=== PATIENT | female | born 1960 | race Caucasian/White ===

== ENCOUNTER 2021-04-02 13:52 | Outpatient (REF) | payer OTHER, SELFPAY ==
--- NOTE | ~2021-04-02 | US_ITS ---
EXAMINATION: US RETROPERITONEAL LIMITED (RENAL ONLY) CLINICAL INFORMATION: Calculus of kidney. COMPARISON: Renal ultrasounds, most recent 11/17/2019 TECHNIQUE: Real-time imaging of the kidneys. FINDINGS: RIGHT KIDNEY: 11.5 x 4.9 x 6.0 cm (SAG x AP x TRV). The kidney is normal in size, contour, and echogenicity. Renal cortical thickness is normal. No calculi or focal parenchymal lesions. No hydronephrosis. LEFT KIDNEY: 11.4 x 6.6 x 5.9 cm (SAG x AP x TRV). The kidney is normal in size, contour, and echogenicity. Renal cortical thickness is normal. No calculi or focal parenchymal lesions. No hydronephrosis. Liver is echogenic. US/US renal BI IMPRESSION: Normal renal ultrasound. No stone seen..
== END 2021-04-02 13:53 | disposition home or self-care (01) ==
LOC: HO.US 13:52
PROVIDERS: PCP Internal Medicine; Visit Provider Urology
DX: N20.0 Calculus of kidney (principal)
CPT/HCPCS: 76775

== ENCOUNTER 2021-04-24 14:29 | Outpatient (REF) | payer OTHER, SELFPAY | END 2021-04-24 14:30 | disposition home or self-care (01) | LOC: HO.LNP 14:29 | PROVIDERS: PCP Internal Medicine | DX: N20.0 Calculus of kidney (principal); E11.9 Type 2 diabetes mellitus without complications; H54.8 Legal blindness, as defined in USA; Z87.891 Personal history of nicotine dependence; Z87.440 Personal history of urinary (tract) infections | CPT/HCPCS: 87086; 87088; 87186 ==

== ENCOUNTER 2022-04-04 13:02 | Outpatient (REF) | payer OTHER, SELFPAY ==
--- NOTE | ~2022-04-04 | US_ITS ---
EXAMINATION: US RETROPERITONEAL LIMITED (RENAL ONLY) CLINICAL INFORMATION: Calculus of kidney. COMPARISON: Renal ultrasound 04/02/2021 and 11/17/2019. X-ray KUB 09/16/2018 and 09/17/2017. CT abdomen and pelvis 05/26/2018. TECHNIQUE: Real-time imaging of the kidneys. FINDINGS: RIGHT KIDNEY: 10.8 x 4.1 x 5.9 cm (SAG x AP x TRV). The kidney is normal in size, contour, and echogenicity. Renal cortical thickness is normal. No calculi or focal parenchymal lesions. No hydronephrosis. LEFT KIDNEY: 10.6 x 6.2 x 6.1 cm (SAG x AP x TRV). The kidney is normal in size, contour, and echogenicity. Renal cortical thickness is normal. No calculi or focal parenchymal lesions. No hydronephrosis. US/US renal BI IMPRESSION: Normal renal ultrasound. No stone seen.
== END 2022-04-04 13:03 | disposition home or self-care (01) ==
LOC: HO.US 13:02
DX: N20.0 Calculus of kidney (principal)
CPT/HCPCS: 76775

== ENCOUNTER → 2022-04-23 13:40 | Outpatient (BNVA) | payer OTHER, SELFPAY | PROVIDERS: PCP Internal Medicine; Visit Provider Nurse Practitioner Family | DX: N20.0 Calculus of kidney (principal); Z87.440 Personal history of urinary (tract) infections | CPT/HCPCS: 99212 ==

== ENCOUNTER → 2022-07-23 11:33 | Outpatient (BNVA) | payer OTHER, SELFPAY | PROVIDERS: PCP Internal Medicine; Visit Provider Nurse Practitioner Family | DX: N20.0 Calculus of kidney (principal) | CPT/HCPCS: 99212 ==

== ENCOUNTER 2022-08-07 06:55 | Day surgery (SDC) | payer OTHER, SELFPAY ==
[2022-08-01 13:51] VITALS: BMI 31.7
--- NOTE | ~2022-08-07 | XR_ITS ---
EXAMINATION: XR ABDOMEN KUB CLINICAL INDICATION: Right renal stone COMPARISON: KUB 09/16/2018. Ultrasound 04/04/2022 TECHNIQUE: 2 AP view of the abdomen. FINDINGS: There are 2 small calcific densities measuring 2 mm respectively , projected over the right renal fossa. This could be related to bowel contents versus renal calculi. Bowel gas and stool projected over the renal fossa limiting evaluation. No additional definite renal calculi seen. Multiple calcifications in the pelvis, probably phleboliths. Distal ureteral stones cannot be entirely excluded. Nonobstructive bowel gas pattern. Surgical sutures project over the right abdomen. Thoracic spine degeneration. Lung bases are clear. XR/XR KUB IMPRESSION: 2 small densities project of the right renal fossa could reflect bowel contents versus small renal calculi..
[2022-08-07 08:03] VITALS: BP 147/92; PULSE 92; RESP 18; TEMP 36.3; O2SAT 97
[2022-08-07 08:10] LABS: Glucose, Whole Blood 129 mg/dL (60-115)
[2022-08-07] MEDS: Lactated Ringers 1,000 ML 50 ML IVCONT (08:34)
--- NOTE | 2022-08-07 09:05 | P.CONAN_ITS ---
[facility] Active Problems Active Problems: All Active Problems (Updated 08/01/22 @ 13:24 by Dominique Hernandez, RN) Hx of urinary tract infection (Acute) Calculus of kidney (Acute) Past Medical History Medical History (Updated 08/01/22 @ 13:24 by Dominique Heranndez, RN) Arthritis Asthma Back pain Calculus of kidney Depression Diabetes mellitus, type II Fatty liver Fibromyalgia HTN (hypertension) Hx of urinary tract infection Hyperlipidemia Legally blind Obesity On beta antelmo at home ANANT (obstructive sleep apnea) Renal stones Retained ureteral stent UTI (urinary tract infection) Vertigo Family History Family history of problems with anesthesia: No Surgical History Surgical History (Updated 08/01/22 @ 13:11 by Dominique Hernandez, SAMI) History of cystoscopy History of enucleation of left eyeball History of esophagogastroduodenoscopy (EGD) History of lithotripsy History of sleeve gastrectomy Hx of cholecystectomy Hx of colonoscopy Hx of hysterectomy History of Problems with Anesthesia: No Social History Social History Household Members Other:: SON Housing Other:: Mobile Home Are you a primary family member caretaker to a significant other at home: No Do you presently have visiting nurse or other home services: No Patient Tobacco Use Status: Former Tobacco user Quit Date: 2018 Tobacco use type: Cigarette Use of substances other than those prescribed or required for medical reasons: No Have you been hit, kicked, punched, or otherwise hurt by someone within the past year? If so, by whom?: No Are you DNR?: No Advance Directives: No Advance Directives Information Provided: Yes Advance Directives on File: No Recently lost weight without trying: No Eating poorly because of decreased appetite: No Nutrition Risks: No Nutritional Risk Meds Allergies Allergy/AdvReac Type Severity Reaction Status Date / Time nifedipine AdvReac Headache Verified 08/01/22 13:17 Active Medications: Current Medications Lactated Ringer's (Lr) 1,000 mls @ 50 mls/hr IVCONT .Q20H [facility] Last Admin: 08/07/22 08:34 Dose: 50 mls/hr Lactated Ringer's (Lr) 1,000 mls @ 999 mls/hr IV .Q1H1M [facility] Stop: 08/07/22 09:15 Home Medications Medication Instructions Recorded Confirmed Last Taken Type acetaminophen 500 mg tablet (Pain 1,000 mg PO TID PRN Pain 04/24/21 08/01/22 08/07/22 07:00 History Relief Extra Strength (acetaminophen)) amitriptyline 25 mg tablet 25 mg PO BEDTIME 04/24/21 08/01/22 Unknown History amlodipine 10 mg tablet 10 mg PO DAILY 04/24/21 08/01/22 08/07/22 07:00 History brimonidine 0.2 % eye drops 1 drp ophthalmic-Right TID 04/24/21 08/01/22 Unknown History calcium carbonate 600 mg-vitamin 1 tab PO BID 04/24/21 07/23/22 Unknown History D3 5 mcg (200 unit) tablet (Calcium 600 + D(3)) docusate sodium 100 mg capsule 100 mg PO BID PRN constipation 04/24/21 08/01/22 Unknown History dorzolamide 22.3 mg-timolol 6.8 1 drp ophthalmic-Right TID 04/24/21 08/01/22 Unknown History mg/mL eye drops dulaglutide 1.5 mg/0.5 mL mg subcut QWEEK 04/24/21 07/23/22 Unknown History subcutaneous pen injector (Trulicity) duloxetine 60 mg capsule,delayed 120 mg PO DAILY 04/24/21 08/01/22 Unknown History release glipizide 5 mg tablet 5 mg PO DAILY 04/24/21 08/01/22 Unknown History latanoprost 0.005 % eye drops 1 drp ophthalmic-Right BEDTIME 04/24/21 08/01/22 Unknown History metformin 500 mg tablet,extended 500 mg PO DAILY 04/24/21 08/01/22 Unknown History release 24 hr methenamine hippurate 1 gram tablet 1 g PO BID 04/24/21 08/01/22 Unknown History omeprazole 40 mg capsule,delayed 40 mg PO BID 04/24/21 08/01/22 Unknown History release pilocarpine HCl 2 % eye drops 1 drp ophthalmic-Right TID 04/24/21 08/01/22 Unknown History potassium citrate 15 mEq (1,620 15 meq PO BID 04/24/21 08/01/22 Unknown History mg) tablet,extended release trazodone 100 mg tablet 200 mg PO BEDTIME 04/24/21 08/01/22 Unknown History lisinopril 40 mg tablet 40 mg PO DAILY 04/23/22 08/01/22 Unknown History pregabalin 150 mg capsule 150 mg PO BID 04/23/22 08/01/22 Unknown History rosuvastatin 10 mg tablet 10 mg PO DAILY 04/23/22 08/01/22 Unknown History dapagliflozin 10 mg tablet 10 mg PO DAILY 07/23/22 08/01/22 Unknown History (Farxima) tizanidine 2 mg tablet 2 mg PO TID PRN pain 07/23/22 08/01/22 Unknown History budesonide-formoterol HFA 80 2 puff inhalation BID 08/01/22 08/01/22 Unknown History mcg-4.5 mcg/actuation aerosol inhaler (Symbicort) metoprolol tartrate 100 mg tablet 100 mg PO BID 08/01/22 08/01/22 Unknown History Exam Exam Date and Time: August 07, 2022 0905 Height,Weight and Vital Signs: Height 5 ft 9 in Weight 97.522 kg Last Vital Signs Temp 97.4 F 08/07/22 08:03 Pulse 92 08/07/22 08:03 Resp 18 08/07/22 08:03 BP 147/92 H 08/07/22 08:03 Pulse Ox 97 08/07/22 08:03 O2 Del Method Room Air 08/07/22 08:03 Pertinent Lab Results Pertinent Lab Results: Laboratory Tests 08/07/22 08:06 POC Glucose 129 H Airway Mallampati Class: II TM Dist: >3cm Heart: rrr Lungs: cta Assessment and Plan Assessment Anesthesia Assessment: Anesthesia Plan Discussed and Chart Reviewed Final Anesthetic Review Family History of Problems with Anesthesia: No History of Problems with Anesthesia: No NPO: Yes ASA Class: III Final Preanesthetic Review: No Changes in Pt Med Stat, Meds/Allgs Chart Reviewed, Consent Obtained/Reviewed and Anes Risks/Benef Reviewed Patient Risk: Low Procedure Risk: Low Anesthetic Plan Anesthetic Plan: GA Disposition: Standard PACU
--- NOTE | 2022-08-07 09:06 | MHC.SHP ---
Pre-Procedural Eval Section A Date of Service: 08/07/22 The patient is an INPATIENT: No Changes since office visit: No Cold of Flu in the past 2 weeks, No New Medical Problems, No Changes in Medication and No Patient answered all questions The History & Physical has been completed within 30 days and I have reviewed it.: Yes Section B Chief Complaint: Calculus of kidney Allergies: Allergies Allergy/AdvReac Type Severity Reaction Status Date / Time nifedipine AdvReac Headache Verified 08/01/22 13:17 Review of Systems Sugical H&P ROS: Negative: Constitution, Cardiovascular, Respiratory, Neurological, Psychiatric, Hem-Onc, Allergic/Immunologic, Gastrointestinal, Genitourinary, Musculoskeletal, Integumentary, Endocrine and Eyes/Ears/Nose/Throat Exam Surgical H&P Exam: Normal: HEENT, Normal: Heart, Normal: Lungs, Normal: Extremities, Normal: Abdomen, Normal: Skin and Normal: Neurological Plan Diagnosis/Plan: Unchanged (right ESWL) I have reviewed the history and physical and performed a pertinent physical examination on my patient. No changes have occurred unless specified. Time Spent With Patient Time: Total time managing care of this patient today ____ minutes.
--- NOTE | 2022-08-07 09:26 | PC.NURSE ---
pt took 1000mg po of tylenol iv tylenol return pharmacy will [facility] picker
--- NOTE | 2022-08-07 09:57 | W.PM.OPN ---
Operative Note Operative Note Date of Service: 08/07/22 Narrative: PreOperative Diagnosis: right Renal stones Post Operative Diagnosis: right Renal stones Procedure: right ESWL Surgeon: Dr Alex Peralta Anesthesia: mac/sedation Indications for procedure: The patient understands ESWL may be a staged procedure and subsequent intervention may be required based on imaging after ESWL. Quoted stone clearance rates for a solitary procedure are in the 70-80% range based primarily on stone location. They also understand there is a risk of bleeding to the kidney, infection, damage to adjacent organs, and stone migration following the procedure. - Imaging right stones on KUB Procedure: After informed consent was verified the patient was brought to the operating room and placed in a supine position. Anesthesia was performed per protocol. Safety pause time-out was performed. Imaging was displayed in the room and laterality confirmed. ESWL was performed. The 1st 500 shocks were performed at 60 hertz. These were performed with increasing power. Once maximum power was reached the rate was increased to 180 hertz. A total of 2500 shocks were given. Targeted imaging with ultrasound/fluoroscopy showed stone smudging suggestive of disintegration. The patient tolerated the procedure well and was transferred to the recovery area upon completion. Post procedure imaging will be organized. There was no evidence for flank discoloration.
[2022-08-07 10:05] VITALS: BP 114/73; PULSE 75; RESP 17; TEMP 36.9; O2SAT 98
[2022-08-07 10:10] VITALS: BP 123/79; PULSE 74; RESP 16; O2SAT 96
[2022-08-07 10:15] VITALS: BP 120/83; PULSE 74; RESP 17; O2SAT 96
[2022-08-07 10:20] VITALS: BP 122/80; PULSE 76; RESP 18; O2SAT 96
[2022-08-07 10:35] VITALS: BP 119/87; PULSE 77; RESP 18; TEMP 36.9; O2SAT 97
== END 2022-08-07 10:56 | disposition home or self-care (01) ==
PROVIDERS: PCP Internal Medicine; Visit Provider Urology
PROC: (CPT 50590; principal; 2022-08-07 08:50)
DX: N20.0 Calculus of kidney (principal); Z87.442 Personal history of urinary calculi; Z87.440 Personal history of urinary (tract) infections; Z96.0 Presence of urogenital implants; J45.909 Unspecified asthma, uncomplicated; K76.0 Fatty (change of) liver, not elsewhere classified; H54.8 Legal blindness, as defined in USA; E11.9 Type 2 diabetes mellitus without complications; Z79.85 Long-term (current) use of injectable non-insulin antidiabetic drugs; Z79.51 Long term (current) use of inhaled steroids; Z79.899 Other long term (current) drug therapy; Z88.8 Allergy status to other drugs, medicaments and biological substances; Z87.891 Personal history of nicotine dependence
CPT/HCPCS: 50590; 74018; 82947; J0131; J1100; J2405; J3010

== ENCOUNTER 2022-08-16 13:02 | Outpatient (REF) | payer OTHER, SELFPAY ==
--- NOTE | ~2022-08-16 | US_ITS ---
EXAMINATION: US RETROPERITONEAL LIMITED (RENAL ONLY) CLINICAL INFORMATION: Calculus of kidney. COMPARISON: Renal ultrasound 04/04/2022 and 04/02/2021. CT abdomen and pelvis 05/26/2018. TECHNIQUE: Real-time imaging of the kidneys. FINDINGS: RIGHT KIDNEY: 11.3 x 4.5 x 6.7 cm (SAG x AP x TRV). The kidney is normal in size, contour, and echogenicity. Renal cortical thickness is normal. No focal parenchymal lesions or hydronephrosis. Nonobstructing stones measuring 1 cm in the lower pole, previously [address] not seen on prior ultrasound and 2 mm in the upper pole new from prior. LEFT KIDNEY: 10.7 x 5.4 x 6.6 cm (SAG x AP x TRV). The kidney is normal in size, contour, and echogenicity. Renal cortical thickness is normal. No calculi or focal parenchymal lesions. No hydronephrosis. Partially imaged liver appears echogenic. US/US renal BI IMPRESSION: Nonobstructing right renal stones measuring up to 1 cm in the lower pole and 2 mm in the upper pole, as detailed above. Increased hepatic echogenicity which can be seen in the setting of hepatic steatosis or underlying liver disease.
== END 2022-08-16 13:03 | disposition home or self-care (01) ==
LOC: HO.HMGCX 13:02
PROVIDERS: PCP Internal Medicine; Visit Provider Nurse Practitioner Family
DX: N20.0 Calculus of kidney (principal); Z87.440 Personal history of urinary (tract) infections
CPT/HCPCS: 76775

== ENCOUNTER 2022-12-03 14:12 | Outpatient (REF) | payer OTHER, SELFPAY ==
[2022-12-03 20:11] LABS: Appearance Urine Cloudy; Color Urine Yellow; Glucose Urine UA 250 mg/dL (Negative); Leukocyte Esterase Urine Moderate (2+) (Negative); Nitrite Urine Positive (Negative); PH 5.5 (5.0-9.0); UMIC TRIGGER UA YES; Urine Blood Negative (Negative); Urine Ketones Negative (Negative); Urine Protein Trace mg/dL (Neg-Trace)
[2022-12-03 20:17] LABS: Bacteria Urine 4+ (None Seen); Hyaline Casts Urine 0-2 /LPF (0-2); RBC Urine 0-2 /HPF (0-2); Squamous Epithelial Cell Urine 0-2 /HPF (0-2); WBC Urine >50 /HPF (0-5)
== END 2022-12-03 14:13 | disposition home or self-care (01) ==
LOC: HO.LAB 14:12
PROVIDERS: Visit Provider Urology
DX: R31.29 Other microscopic hematuria (principal); N39.0 Urinary tract infection, site not specified; R33.9 Retention of urine, unspecified; Z87.440 Personal history of urinary (tract) infections
CPT/HCPCS: 81001; 87086; 87088; 87186; 99212

== ENCOUNTER 2022-12-03 14:12 | Outpatient (AMB) | payer OTHER, SELFPAY ==
--- NOTE | 2022-12-03 14:19 | A.OFFVIS_ITS ---
Intake Intake Visit Reasons: follow up Intake Note: Patient is present for Follow Up Urology Med: Methenamine, Tamsulosin, Antibiotic Allergy: None Blood Thinner: None Pharmacy: [facility] Allergies nifedipine Adverse Reaction (Verified 12/03/22 14:22) Headache HPI HPI Comments History of Present Illness Details Alicia is a pleasant Thai-speaking female. She is a patient of Dr. Mayfield. She seen for the following urologic conditions - nephrolithiasis Background of glucosuria with Trulicity for diabetes Stone follow-up - indeterminate imaging Urinary tract infection today following back surgery in late August Decreased force of stream Manage urinary tract infection and alpha-antelmo to improve bladder emptying Nephrolithiasis Prior presentation to emergency room [facility] - 07/25 CT scan 6 mm right renal stone with fatty liver - 04/25 renal ultrasound evidence of stones Intervention - 08/25 right ESWL PFS Medical History Arthritis Asthma Back pain Calculus of kidney Depression Diabetes mellitus, type II Fatty liver Fibromyalgia HTN (hypertension) Hx of urinary tract infection Hyperlipidemia Legally blind Obesity On beta antelmo at home ANANT (obstructive sleep apnea) Renal stones Retained ureteral stent UTI (urinary tract infection) Vertigo Surgical History History of cystoscopy History of enucleation of left eyeball History of esophagogastroduodenoscopy (EGD) History of lithotripsy History of sleeve gastrectomy Hx of cholecystectomy Hx of colonoscopy Hx of hysterectomy Social History Household Members Other:: SON Housing Other:: Mobile Home Are you a primary critical care specialist to a significant other at home: No Do you presently have visiting nurse or other home services: No Patient Tobacco Use Status: Former Tobacco user Quit Date: 2018 Tobacco use type: Cigarette Review of Systems Const Denies chills and Denies fever(s) Card Reports no additional complaints and Denies syncope Resp Denies cough GI Denies abdominal pain and Denies heartburn Reports as per HPI and Denies change in libido Neuro Denies syncope Psych Denies change in libido Endo Denies change in libido Physical Exam Const General: cooperative, healthy appearing, comfortable and no acute distress Orientation/consciousness: patient oriented x3 HEENT Face and sinus: Yes normal facial exam Mouth: moist mucous membranes Neck Neck: Yes normal visual inspection, Yes full ROM and Yes trachea midline Chest Chest palpation & inspection: normal inspection of the chest Resp Effort & Inspection: normal respiratory effort, able to speak in complete sentences and no respiratory distress GI Inspection: Yes normal to inspection Back/Spine/Pelvis Cervical Spine: normal cervical lordosis Thoracic/Lumbar Spine: thoracic and lumbar spine normal to inspection Skin General skin exam: no rashes or lesions noted Neuro General: patient oriented x3, gait normal, tone normal and moves all extremities Extrem General: Yes normal to inspection and Yes capillary refill normal Results AMB Urinalysis, Automated UA Leukoctes 70 Mahsa/uL Last Edit by Leial Gallardo [facility] on 12/03/22 14:34 UA Nitrite Positive Last Edit by Leila Gallardo [facility] on 12/03/22 14:34 UA Urobilinogen 0.2 mg/dL Last Edit by Leila Gallardo [facility] on 12/03/22 14:3 4 UA Protein 15 mg/dL Last Edit by Leila Gallardo [facility] on 12/03/22 14:34 UA pH 6.0 Last Edit by Leila Gallardo [facility] on 12/03/22 14:34 UA Blood 0 Chadwick/uL Last Edit by Leila Gallardo [facility] on 12/03/22 14:34 UA Specific [place] 1.020 Last Edit by Leila Gallardo [facility] on 12/03/22 14: 34 UA Ketone Negative Last Edit by Leila Gallardo [facility] on 12/03/22 14:34 UA Bilirubin 0 mg/dL Last Edit by Leila Gallardo [facility] on 12/03/22 14:34 UA Glucose 5 mg/dL Last Edit by Leila Gallardo [facility] on 12/03/22 14:34 Assessment & Plan Assessment & Plan (1) Complicated urinary tract infection: Code(s): N39.0 - Urinary tract infection, site not specified (2) Urinary retention with incomplete bladder emptying: Code(s): R33.9 - Retention of urine, unspecified Plan - Treat UTI - add alpha-antelmo for bladder emptying - 3 month follow-up Orders: Orders Urine Culture Today Z87.440 - Personal history of urinary (tract) infections UA w Microscopic Today R31.29 - Other microscopic hematuria, Z87.440 - Personal history of urinary (tract) infections AMB Urinalysis Automated Today Z13.9 - Encounter for screening, unspecified Medications: New sulfamethoxazole-trimethoprim 800-160 mg (Bactrim DS) 1 tab PO bid 5 days 10 tabs 0RF N39.0 - Urinary tract infection, site not specified tamsulosin 0.4 mg PO BEDTIME 30 caps 2RF 30 days R33.9 - Retention of urine, unspecified Patient Instructions: Imaging studies, laboratory and physical exam results were discussed and reviewed in detail. No major barriers to patient understanding were identified. An opportunity to ask questions regarding the treatment plan was provided. All questions were answered. The patient expressed understanding and agreement with the above treatment plan. The patient is aware they should contact our office by phone for worsening of their current condition or the appearance of new urologic symptoms. Compliance is encouraged with any medications and followup testing that is ordered. It is a privilege to participate in the urologic care of your patient. If you have any questions or concerns regarding treatment for the above conditions, or other urologic issues, please do not hesitate to contact me. The office telep placido contact is [phone]. This note is constructed using voice recognition software. While every effort has been made to ensure accuracy computer network specialist errors may have been included. Yours sincerely, Dr Alex Peralta MD, [facility] - Urology Providers of Expert, Compassionate Care for the Genitourinary System Coding Level of Care Code Est Pt Level 4 (21324) Diagnoses Complicated urinary tract infection N39.0 Urinary retention with incomplete bladder emptying R33.9
== END 2022-12-03 14:44 | disposition home or self-care (01) ==
PROVIDERS: Visit Provider Urology
DX: N39.0 Urinary tract infection, site not specified (principal); R33.9 Retention of urine, unspecified
CPT/HCPCS: 99214

== ENCOUNTER 2023-03-06 15:21 | Outpatient (REF) | payer OTHER, SELFPAY ==
--- NOTE | ~2023-03-06 | US_ITS ---
EXAMINATION: US RETROPERITONEAL LIMITED (RENAL ONLY) CLINICAL INFORMATION: Calculus of kidney. COMPARISON: Ultrasound retroperitoneal limited 08/16/2022 and 04/04/2022. X-ray abdomen KUB 08/07/2022 and 09/16/2018. CT abdomen and pelvis without contrast 05/26/2018. TECHNIQUE: Real-time imaging of the kidneys. FINDINGS: RIGHT KIDNEY: 10.8 x 4.3 x 4.9 cm (SAG x AP x TRV). The kidney is normal in size, contour, and echogenicity. Renal cortical thickness is normal. No calculi or focal parenchymal lesions. No hydronephrosis. LEFT KIDNEY: 10.7 x 5.5 x 6.1 cm (SAG x AP x TRV). The kidney is normal in size, contour, and echogenicity. Renal cortical thickness is normal. No calculi or focal parenchymal lesions. No hydronephrosis. US/US renal BI IMPRESSION: No nephrolithiasis or hydronephrosis.
== END 2023-03-06 15:22 | disposition home or self-care (01) ==
LOC: HO.US 15:21
PROVIDERS: PCP Internal Medicine; Visit Provider Nurse Practitioner Family
DX: N20.0 Calculus of kidney (principal)
CPT/HCPCS: 76775

== ENCOUNTER 2023-03-25 13:39 | Outpatient (AMB) | payer OTHER, SELFPAY ==
--- NOTE | 2023-03-25 13:42 | A.OFFVIS_ITS ---
Intake Intake Visit Reasons: 1yr follow up/US(set) Intake Note: Patient is present for follow up ultrasound (imaging 03/06/23) Urology Medications: Methenamine, Tamsulosin, Blood Thinner: None Resident Service Coordinator Required: No Accompanied by: Self / Same As Patient Allergies nifedipine Adverse Reaction (Verified 03/25/23 14:23) Headache Medication List - Last Reconciled 03/25/23 by FER Brand-BC acetaminophen (Pain Relief Extra Strength (acetaminophen)) 1,000 mg PO TID PRN amitriptyline 25 mg PO BEDTIME amlodipine 10 mg PO DAILY brimonidine 0.2% 1 drp ophthalmic-Right TID budesonide-formoterol 80-4.5 mcg/actuation (Symbicort) 2 puffs inhalation BID calcium carbonate-vitamin D3 600 mg-5 mcg (200 unit) (Calcium 600 + D(3)) 1 tab PO BID cholecalciferol (vitamin D3) 25 mcg PO DAILY dapagliflozin propanediol (Farxiga) 10 mg PO DAILY docusate sodium 100 mg PO BID PRN dorzolamide-timolol 22.3-6.8 mg/mL 1 drp ophthalmic-Right TID dulaglutide (Trulicity) mg subcut QWEEK duloxetine 120 mg PO DAILY glipizide 5 mg PO DAILY latanoprost 0.005% 1 drp ophthalmic-Right BEDTIME lisinopril 40 mg PO DAILY metformin ER 500 mg PO DAILY methenamine hippurate 1 g PO BID metoprolol tartrate 100 mg PO BID naproxen 500 mg PO BID PRN 7 days nitrofurantoin monohyd/m-cryst 100 mg (Macrobid) 100 mg PO BID 7 days omeprazole 40 mg PO BID pilocarpine HCl 2% 1 drp ophthalmic-Right TID potassium citrate ER 15 mEq PO BID pregabalin 150 mg PO BID rosuvastatin 10 mg PO DAILY tamsulosin 0.4 mg PO BEDTIME 14 days tamsulosin 0.4 mg PO BEDTIME 90 days tizanidine 2 mg PO TID PRN tramadol 50 mg PO Q6H PRN trazodone 200 mg PO BEDTIME HPI HPI Comments History of Present Illness Details Alicia is a 63-year-old Latvian-speaking female who is accompanied by her son at today visit.?She is a patient of Dr. Mayfield. She has a past medical history of fatty liver, fibromyalgia, obesity, obstructive sleep apnea, vertigo, depression, hyperlipidemia, hypertension, asthma, arthritis, legally blind, type 2 diabetes, nephrolithiasis, and urinary tract infections. She presents to the office today for follow-up of her nephrolithiasis and urinary tract infections. Discussion with the patient today she reports to be doing and feeling well. Recent renal imaging results reviewed with the patient and her son today. Bilateral kidneys with no calculi, lesions, and or hydronephrosis noted. Patient denies having had any urinary tract infections and or UTI like symptoms since her last office visit here. She is currently reporting intermittent right-sided flank however denies any other urinary issues or concerns. No CVA tenderness noted on exam today. She denies urinary urgency, urinary frequency, incontinence, nocturia, hematuria, dysuria, foul smelling urine, changes to urinary stream,fever, and or chills. In office urinalysis with glycosuria however patient on Trulicity for her Diabetes. PVR 0 mL. Discussed further workup with CT KUB for further assessment evaluation of patient's right-sided flank pain. However patient reports pain is intermittent, dull, and infrequent. She otherwise offers no other issues or concerns at this time [facility] Medical History (Reviewed 03/25/23 @ 14:26 by [facility]) Fatty liver On beta antelmo at home Fibromyalgia Obesity ANANT (obstructive sleep apnea) Back pain UTI (urinary tract infection) Vertigo Depression Hyperlipidemia HTN (hypertension) Asthma Arthritis Legally blind Diabetes mellitus, type II Hx of urinary tract infection Retained ureteral stent Renal stones Calculus of kidney Surgical History History of lithotripsy History of cystoscopy History of enucleation of left eyeball History of esophagogastroduodenoscopy (EGD) Hx of colonoscopy Hx of hysterectomy Hx of cholecystectomy History of sleeve gastrectomy Household Members Other:: SON Housing Other:: Mobile Home Are you a primary small animal caretaker to a significant other at home: No Do you presently have visiting nurse or other home services: No Patient Tobacco Use Status: Former Tobacco user Quit Date: 2018 Tobacco use type: Cigarette Review of Systems Eyes Reports as per HPI ENT Reports no additional complaints Card Reports as per [facility] Resp Reports as per [facility] GI Reports no additional complaints Reports as per [facility] Musc Reports as per [facility] Neuro Reports as per [facility] Psych Reports as per [facility] Endo Reports as per [facility] Elia/Lymph Reports no additional complaints Aller/Immun Reports no additional complaints Physical Exam Const General: cooperative, comfortable, no acute distress, well developed, alert and awake Nutritional Appearance: overweight Orientation/consciousness: patient oriented x3 HEENT Head: Yes normal to inspection, Yes normocephalic and Yes atraumatic Ears: hearing grossly normal bilaterally Neck Neck: Yes normal visual inspection and Yes trachea midline Chest Chest palpation & inspection: normal inspection of the chest Resp Effort & Inspection: normal respiratory effort and able to speak in complete sentences Cardio Rate: regular rate GI Inspection: Yes normal to inspection General: Yes no CVA tenderness Back/Spine/Pelvis Back: no CVA tenderness Skin General skin exam: no rashes or lesions noted Neuro General: patient oriented x3 Extrem General: Yes normal to inspection Psych Appearance: grossly normal and well kempt Mental Status: mental status grossly normal Speech and movement: Normal speech and movement present and Clear speech present Affect: normal affect Attitude: cooperative Thought process: Normal thought process present Thought content: Normal thought content present Insight: Fair insight present (Psych) Judgement: Fair judgement present (Psych) Office Procedures Post Void Residual Post Residual Void Post Void Residual (PVR): 0 [id number] Void Residual by ultrasound Results AMB Urinalysis, Automated UA Leukoctes 70 Mahsa/uL Last Edit by [employer] on 03/25/23 14:08 UA Nitrite Negative Last Edit by [employer] on 03/25/23 14:08 UA Urobilinogen 0.2 mg/dL Last Edit by [employer] on 03/25/23 14:08 UA Protein 15 mg/dL Last Edit by [employer] on 03/25/23 14:08 UA pH 5.5 Last Edit by [employer] on 03/25/23 14:08 UA Blood 0 Chadwick/uL Last Edit by [employer] on 03/25/23 14:08 UA Specific [place] 1.025 Last Edit by [employer] on 03/25/23 14:08 UA Ketone Negative Last Edit by [employer] on 03/25/23 14:08 UA Bilirubin 0 mg/dL Last Edit by Gaston Cowan on 03/25/23 14:08 UA Glucose 250 mg/dL Last Edit by Gaston Cowan on 03/25/23 14:08 Results Reviewed Results Reviewed: Laboratory Last Values Urine pH (Auto) 5.5 03/25/23 13:49 Specific [place] (Auto) 1.025 03/25/23 13:49 Urine Protein (Auto) 15 mg/dL 03/25/23 13:49 Glucose (UA)(Auto) 250 mg/dL 03/25/23 13:49 Urine Ketones (Auto) Negative 03/25/23 13:49 Urine Blood (Auto) 0 Chadwick/uL 03/25/23 13:49 Urine Nitrite (Auto) Negative 03/25/23 13:49 Urine Bilirubin (Auto) 0 mg/dL 03/25/23 13:49 Urine Urobilinogen (Auto) 0.2 mg/dL 03/25/23 13:49 Leukocyte Esterase (Auto) 70 Mahsa/uL 03/25/23 13:49 Date of Service: 03/06/23 EXAMINATION: US RETROPERITONEAL LIMITED (RENAL ONLY) FINDINGS: RIGHT KIDNEY: 10.8 x 4.3 x 4.9 cm (SAG x AP x TRV). The kidney is normal in size, contour, and echogenicity. Renal cortical thickness is normal. No calculi or focal parenchymal lesions. No hydronephrosis. LEFT KIDNEY: 10.7 x 5.5 x 6.1 cm (SAG x AP x TRV). The kidney is normal in size, contour, and echogenicity. Renal cortical thickness is normal. No calculi or focal parenchymal lesions. No hydronephrosis. US/US renal BI IMPRESSION: No nephrolithiasis or hydronephrosis Assessment & Plan Assessment & Plan (1) Calculus of kidney: Code(s): N20.0 - Calculus of kidney (2) Complicated urinary tract infection: Code(s): N39.0 - Urinary tract infection, site not specified Plan In office urinalysis results reviewed with the patient today; as noted above. Recent renal imaging results reviewed with the patient today; as noted above. Patient denies any bothersome urinary issues at this time. Discussed obtaining CT KUB/CT urogram for further assessment evaluation however patient reports left-sided flank pain she is experiencing is infrequent and dull will continue with surveillance monitoring at this time. Discussed and stressed the importance of drinking plenty of water daily. Continue adding 1 oz of lemon juice to water daily. Discussed UTI prevention with D mannose supplement, vitamin-C, increasing fluid intake, behavioral therapy with timed voiding, perineal hygiene and postcoital voiding, and management of constipation with stool softeners and increased fiber intake. Renal ultrasound in 1 year. Follow-up in 1 year with imaging to be completed prior; or sooner with any issues, concerns, and or questions. Orders: Orders AMB Post Void Residual by ultrasound Today R33.9 - Retention of urine, unspecified US renal BI 364 Days N20.0 - Calculus of kidney AMB Urinalysis Automated Today Z13.9 - Encounter for screening, unspecified Patient Instructions: The patient had an opportunity to ask questions regarding the treatment plan. All questions were answered. Physical exam, labs, and imaging were discussed and reviewed in detail. As well as risks, benefits, and discussion of treatment choices. No major barriers to understanding were identified. The patient expressed understanding and agreement with the above treatment plan. The patient was made aware they should contact our office by phone for worsening of their current condition, the appearance of new symptoms, or with any questions or concerns. Compliance is encouraged with any medications and follow up testing that is ordered. It is a privilege to be allowed the opportunity to participate in? your urological care.? Again, if you have any questions or concerns If you have any questions or concerns please do not hesitate to contact me. The office is [phone]. This note is constructed using voice recognition software. While every effort has been made to ensure accuracy take up supervisor errors may have been included. Yours sincerely, CORNELIO Brand Coding Level of Care Code Est Pt Level 3 (10749) Diagnoses Calculus of kidney N20.0 Complicated urinary tract infection N39.0 CPT Codes Post Residual Void - PVR CPT Code: 94479-Unlv Void Residual by ultrasound ([id number])
== END 2023-03-25 14:20 | disposition home or self-care (01) ==
PROVIDERS: Visit Provider Nurse Practitioner Family
DX: N20.0 Calculus of kidney (principal); N39.0 Urinary tract infection, site not specified; Z13.9 Encounter for screening, unspecified
CPT/HCPCS: 99213

== ENCOUNTER → 2023-03-25 13:39 | Outpatient (BNVA) | payer OTHER, SELFPAY | PROVIDERS: Visit Provider Nurse Practitioner Family | DX: N20.0 Calculus of kidney (principal); N39.0 Urinary tract infection, site not specified | CPT/HCPCS: 51798; 81003; 99212 ==

== ENCOUNTER 2024-03-23 14:05 | Outpatient (REF) | payer OTHER, SELFPAY | END 2024-03-23 14:06 | disposition home or self-care (01) | LOC: HO.US 14:05 | PROVIDERS: Visit Provider Nurse Practitioner Family | DX: N20.0 Calculus of kidney (principal) | CPT/HCPCS: 76775 ==

== ENCOUNTER 2024-03-29 13:02 | Outpatient (REF) | payer OTHER, SELFPAY | END 2024-03-29 13:03 | disposition home or self-care (01) | LOC: HO.CT 13:02 | PROVIDERS: PCP Internal Medicine; Visit Provider Nurse Practitioner Family | DX: R10.9 Unspecified abdominal pain (principal) | CPT/HCPCS: 74176 ==

== ENCOUNTER → 2024-03-29 13:04 | Outpatient (BNV) | payer OTHER, SELFPAY | PROVIDERS: PCP Internal Medicine; Visit Provider Radiology Diagnostic Radiology | DX: N20.0 Calculus of kidney (principal) | CPT/HCPCS: 74176 ==

== ENCOUNTER 2024-05-24 12:02 | Outpatient (AMB) | payer OTHER, SELFPAY ==
--- NOTE | 2024-05-24 12:02 | MHC.OFFVIS ---
Intake Visit Reasons: 1y/US/CT(set) Intake Note: Patient is present for 1Y/US/CT Urology Medication:TAMSULOSIN,POTTASSIUM CITRATE Antibiotic Allergy:NONE Blood Thinner:NONE Supervisor Doping Required: No Supervisor Doping Name: [id number] Allergies nifedipine Adverse Reaction (Verified 05/24/24 12:28) Headache Medication List - Last Reconciled 05/24/24 by MACKENZIE BrandP- acetaminophen (Pain Relief Extra Strength (acetaminophen)) 1,000 mg PO TID PRN brimonidine 0.2% 1 drp ophthalmic-Right TID budesonide-formoterol 80-4.5 mcg/actuation (Symbicort) 2 puffs inhalation BID calcium carbonate-vitamin D3 600 mg-5 mcg (200 unit) (Calcium 600 + D(3)) 1 tab PO BID cholecalciferol (vitamin D3) 25 mcg PO DAILY dapagliflozin propanediol (Farxiga) 10 mg PO DAILY docusate sodium 100 mg PO BID PRN dorzolamide-timolol 22.3-6.8 mg/mL 1 drp ophthalmic-Right TID dulaglutide (Trulicity) mg subcut QWEEK duloxetine 120 mg PO DAILY glipizide 5 mg PO DAILY latanoprost 0.005% 1 drp ophthalmic-Right BEDTIME lisinopril 40 mg PO DAILY metformin ER 500 mg PO DAILY nitrofurantoin monohyd/m-cryst 100 mg (Macrobid) 100 mg PO BID 7 days pilocarpine HCl 2% 1 drp ophthalmic-Right TID potassium citrate ER 15 mEq PO BID pregabalin 150 mg PO BID rosuvastatin 10 mg PO DAILY tamsulosin 0.4 mg PO BEDTIME 90 days tizanidine 2 mg PO TID PRN HPI Comments Details: Alicia is a 64-year-old Romanian-speaking female patient of Dr. Mayfield. She has a past medical history of fatty liver, fibromyalgia, obesity, obstructive sleep apnea, vertigo, depression, hyperlipidemia, hypertension, asthma, arthritis, legally blind, type 2 diabetes, nephrolithiasis, and urinary tract infections. She is being followed up on today via telehealth for nephrolithiasis and recurrent urinary tract infections. Recent CT and renal ultrasound results reviewed with the patient today 03/28 Bilateral kidneys with no hydronephrosis. There is 2.5mm nonobstructing stone in the right kidney. No left-sided nephrolithiasis. We discssed questionable ileus versus partial intermittent mild small-bowel obstruction. She discusses at length her issues with constipation and follows up with her PCP. She is however requesting referral to gastroenterology for further assessment evaluation. We discussed importance of adequate hydration relation to nephrolithiasis as well as constipation. She otherwise denies any UTI like symptoms. She denies having had any UTIs and or UTI like symptoms since her last office visit here over a year ago. She denies urinary urgency, urinary frequency, incontinence, nocturia, hematuria, dysuria, foul smelling urine, changes to urinary stream,fever, and or chills. We discussed surveillance monitoring of nephrolithiasis. She otherwise offers no other issues or concerns at this time. [facility] Medical History Fatty liver On beta antelmo at home Fibromyalgia Obesity ANANT (obstructive sleep apnea) Back pain UTI (urinary tract infection) Vertigo Depression Hyperlipidemia HTN (hypertension) Asthma Arthritis Legally blind Diabetes mellitus, type II Hx of urinary tract infection Retained ureteral stent Renal stones Calculus of kidney Surgical History History of lithotripsy History of cystoscopy History of enucleation of left eyeball History of esophagogastroduodenoscopy (EGD) Hx of colonoscopy Hx of hysterectomy Hx of cholecystectomy History of sleeve gastrectomy Social History Household Members Other:: SON Housing Other:: Mobile Home Are you a primary care advocate to a significant other at home: No Do you presently have visiting nurse or other home services: No Patient Tobacco Use Status: Former Tobacco user Tobacco use type: Cigarette Review of Systems Eyes Reports as per HPI ENT Reports no additional complaints Card Reports as per HPI Resp Reports as per HPI GI Reports no additional complaints Reports as per HPI Musc Reports as per HPI Neuro Reports as per HPI Psych Reports as per HPI Endo Reports as per HPI Elia/Lymph Reports no additional complaints Aller/Immun Reports no additional complaints Physical Exam Const General: cooperative Resp Effort & Inspection: able to speak in complete sentences Psych Thought content: Normal thought content present Insight: Fair insight present (Psych) Judgement: Fair judgement present (Psych) Telehealth Telehealth Telehealth Platform: Telephone Location of provider rendering services: practice address Location of patient: address on file Patient Identification confirmed using: Name, : Yes Telehealth method: voice only Patient verbally consented to treatment: Yes Patient verbally consented to billing insurance company: Yes Patient informed of any privacy concerns related to visit: Yes Minutes spent on Phone/Video with Pt.: 20 Results Reviewed Results Reviewed: Date of Service: 03/29/24 EXAMINATION: CT ABDOMEN AND PELVIS WITHOUT CONTRAST FINDINGS: Submitted for interpretation on May 20, 2024. Limited examination of the intra-abdominal organs and vascular structures due to lack of IV contrast. LUNG BASES: Nonspecific patchy and linear opacities in the lung bases. LIVER, GALLBLADDER, AND BILIARY TREE: Liver measures 17 cm. Status post cholecystectomy likely laparoscopic No intrahepatic or extrahepatic biliary ductal dilatation.. PANCREAS: No peripancreatic collections. No main pancreatic ductal dilatation. SPLEEN: 8 cm. ADRENAL GLANDS: No nodular lesions. KIDNEYS AND URETERS: Right kidney: There is a 2.5 mm calcification in the lower pole. No hydronephrosis. Left kidney: No hydronephrosis. No nephrolithiasis. BLADDER: Fluid-filled nearly collapsed. GASTROINTESTINAL TRACT: Gas and fluid-filled prominent jejunal loops. Segmental areas of the wall thickening versus collapsed pattern involving the large intestine. Sutures along the gastric margin. No ascites. No pneumoperitoneum. Appendix appears normal. ABDOMINAL WALL: Sutures along the abdominal periumbilical wall. No gross hernia. LYMPH NODES: Nonspecific mildly prominent mesenteric lymph nodes. VASCULAR: Tortuosity of the abdominal aorta with the calcified plaques along the aortic wall without aneurysm. PELVIC VISCERA: Not evaluated. OSSEOUS STRUCTURES: Multilevel thoracolumbar spondylosis resulting in grade 1 retrolisthesis L5-S1 and to a lesser extent L3-4 and grade 1 anterolisthesis L4-5. No acute fracture. Status post laminectomies, L3-4 and status post resection of the posterior spinous processes. Fatty atrophy of the lower lumbar muscles at the surgical site. IMPRESSION: Questionable ileus versus partial/intermittent mid small bowel obstruction. Consider internal hernias versus adhesions. Nonobstructing nephrolithiasis, right kidney. Assessment & Plan Assessment & Plan (1) Calculus of kidney: Code(s): N20.0 - Calculus of kidney Category: Medical Plan Recent CT results reviewed with the patient today; as noted above. Recent ultrasound results reviewed with the patient today; as noted above. Patient currently denies any bothersome lower urinary tract symptoms. She reports be happy with current voiding parameters. We discussed potential causes of nephrolithiasis as well as constipation; this was discussed at length. All questions were answered. We discussed importance of adequate hydration relation to nephrolithiasis as well as constipation Will refer to GI. Will obtain renal ultrasound in 1 year. Follow-up in 1 year with imaging to be completed prior; or sooner with any issues, concerns, and or questions. Orders: Orders US renal BI 1 Year N20.0 - Calculus of kidney Referrals Gastroenterology Referral K59.00 - Constipation, unspecified Medications: Discontinued tamsulosin Discontinued Reason: Patient no longer taking 0.4 mg PO BEDTIME 90 days 90 caps 0RF R33.9 - Retention of urine, unspecified Patient Instructions: The patient had an opportunity to ask questions regarding the treatment plan. All questions were answered. Physical exam, labs, and imaging were discussed and reviewed in detail. As well as risks, benefits, and discussion of treatment choices. No major barriers to understanding were identified. The patient expressed understanding and agreement with the above treatment plan. The patient was made aware they should contact our office by phone for worsening of their current condition, the appearance of new symptoms, or with any questions or concerns. Compliance is encouraged with any medications and follow up testing that is ordered. It is a privilege to be allowed the opportunity to participate in? your urological care.? Again, if you have any questions or concerns If you have any questions or concerns please do not hesitate to contact me. The office is [phone]. This note is constructed using voice recognition software. While every effort has been made to ensure accuracy manager supplier errors may have been included. Yours sincerely, CORNELIO Brand Coding Level of Care Code Tele Est Pt Level 3 (45307) Diagnoses Calculus of kidney N20.0
== END 2024-05-24 12:41 | disposition home or self-care (01) ==
LOC: HO.HUSH 12:02
PROVIDERS: PCP Internal Medicine; Visit Provider Nurse Practitioner Family
DX: N20.0 Calculus of kidney (principal)
CPT/HCPCS: 99213

== ENCOUNTER 2024-11-29 15:25 | Outpatient (REF) | payer OTHER, SELFPAY ==
--- OUTSIDE RECORDS SUMMARY | 2024-11-29 15:45 | XMS_ITS | Clinical Summary ---
Author Organization [facility] Address [address] [place] [phone] Phone Care Team Providers Care [employer] Senior Sergeant Name Role Phone Physician, No Pcp Primary Care Provider Unavaila ble Allergies Active Allergy Reactions Criticality Noted Date Comments Nifedipine Headache 02/28/2022 Medications No known medications Social History Tobacco Use Types Packs/Day Years Used Date Smoking Tobacco: Unknown Tobacco Cessation:Counseling Given: Not Answered Comments Unknown Sex and Gender Information Value Date Recorded Sex Assigned at Not on file Legal Sex Female 8:23 PM EST Gender Identity Not on file Sexual Orientation Not on file Obstetrics History Last Filed Vital Signs Vital Sign Reading Time Taken Comments Blood Pressure 126/73 06/17/2024 9:02 PM EST Pulse 99 06/17/2024 9:02 PM EST Temperature 36.4 C (97.6 F) 06/17/2024 9:02 PM EST Respiratory Rate 18 06/17/2024 9:02 PM EST Oxygen Saturation 98% 06/17/2024 9:02 PM EST Inhaled Oxygen Concentration - - Weight 92.5 kg (204 lb) 06/17/2024 4:05 PM EST Height 175.3 cm (5' 9 ) 06/17/2024 4:05 PM EST Body Mass Index 30.13 06/17/2024 4:05 PM EST Plan of Treatment Health Maintenance Due Date Last Done Comments Breast Cancer Screening 1960 Diabetes: Annual Foot Exam 01/24/1970 Diabetes: Annual Retina Eye Exam 01/24/1970 Cervical Cancer Screening: Pap Smear 01/24/1981 Pneumococcal Vaccine: 50+ Years (2 of 2 - PCV) 01/16/2010 01/16/2009 RSV Immunization Adult Patients (1 - Risk 60-74 years 1-dose series) 2020 Cholesterol Screening (Lipid Panel) 05/30/2023 Colorectal Cancer Screening: Colonoscopy 05/30/2023 HIV Screening 05/30/2023 Hepatitis C Screening 05/30/2023 Social Influencers of Health Screening 05/30/2023 COVID-19 Vaccine ( season) 2024 03/21/2022, 03/30/2021, 08/28/2020, Additional history exists Depression Screening 05/05/2024 Diabetes: Annual Urine Albumin-Creatinine Ratio (uACR) 06/18/2024 Diabetes: Blood Sugar Control Test (HGBA1C) 06/18/2024 Influenza Vaccine (#1) 2025 , 02/24/2023, 03/13/2022, Additional history exists Diabetes: Annual GFR (Glomerular Filtration Rate) 06/17/2025 06/17/2024 Hypertension/CHF/CAD Annual BMP Blood Test 06/17/2025 06/17/2024 DTaP,Tdap,and Td Vaccines (2 - Td or Tdap) 01/08/2028 01/07/2018 Zoster Vaccines Completed 08/07/2023, 06/09/2023 HIB Vaccines Aged Out No longer eligi ble based on patient's age to complete this topic HPV Vaccines Aged Out No longer eligi ble based on patient's age to complete this topic Hepatitis A Vaccines Aged Out No long er eligible based on patient's age to complete this topic Hepatitis B Vaccines Aged Out No long er eligible based on patient's age to complete this topic IPV Vaccines Aged Out No longer eligi ble based on patient's age to complete this topic MMR Vaccines Aged Out No longer eligi ble based on patient's age to complete this topic Meningococcal ACWY Vaccine Aged Out N o longer eligible based on patient's age to complete this topic Meningococcal B Vaccine Aged Out No l onger eligible based on patient's age to complete this topic RSV Immunization Patients Under 20 months Aged Out No longer eligible based on patient's age to complete this topic Varicella Vaccines Aged Out No longer eligible based on patient's age to complete this topic Procedures Procedure Name Priority Date/Time Associated Diagnosis Comments COMPREHENSIVE METABOLIC PANEL STAT 06/17/2024 7:24 PM EST from Last 3 Months or Most Recently Relevant to Health Maintenance Results * Comprehensive metabolic panel (06/17/2024 7:24 PM EST) Sodium 138 133 - 145 mmol/L LAB CHEMISTRY METHOD 06/17/2024 8:34 PM [facility] Potassium 4.2 3.5 - 5.5 mmol/L LAB CHEMISTRY METHOD 06/17/2024 8:34 PM [facility] Chloride 106 96 - 110 mmol/L LAB CHEMISTRY METHOD 06/17/2024 8:34 PM [facility] CO2 26 21 - 32 mmol/L LAB CHEMISTRY METHOD 06/17/2024 8:34 PM [facility] Anion Gap 6 3 - 11 LAB CHEMISTRY METHOD 06/17/2024 8:34 PM [facility] Glucose 91 70 - 100 mg/dL LAB CHEMISTRY METHOD 06/17/2024 8:34 PM [facility] BUN 18 5 - 25 mg/dL LAB CHEMISTRY METHOD 06/17/2024 8:34 PM [facility] Creatinine 0.81 0.50 - 1.10 mg/dL LAB CHEMISTRY METHOD 06/17/2024 8:34 PM [facility] eGFR 81 >=60 mL/min/1. 73m2 LAB CHEMISTRY METHOD 06/17/2024 8:34 PM [facility] Comment:Calculation based on the Chronic Kidney Disease Epidemiology Collaboration (CKD-EPI) equation refit without adjustment for race. BUN/Creatinine Ratio 22.2 LAB CHEMISTRY METHOD 06/17/2024 8:34 PM [facility] Calcium 9.7 8.5 - 10.5 mg/dL LAB CHEMISTRY METHOD 06/17/2024 8:34 PM [facility] AST (SGOT) 16 10 - 42 unit/L LAB CHEMISTRY METHOD 06/17/2024 8:34 PM [facility] ALT (SGPT) 29 10 - 60 unit/L LAB CHEMISTRY METHOD 06/17/2024 8:34 PM [facility] Alkaline Phosphatase 76 42 - 121 unit/L LAB CHEMISTRY METHOD 06/17/2024 8:34 PM EST [facility] Total Protein 6.6 6.0 - 8.0 g/dL LAB CHEMISTRY METHOD 06/17/2024 8:34 PM EST [facility] Albumin 3.8 3.2 - 5.0 g/dL LAB CHEMISTRY METHOD 06/17/2024 8:34 PM EST [facility] Total Bilirubin 1.3 0.0 - 1.4 mg/dL LAB CHEMISTRY METHOD 06/17/2024 8:34 PM EST [facility] Blood Venous blood specimen / Unknown Venipuncture / Unknown 06/17/2024 7:24 PM EST 06/17/2024 7:50 PM EST us Alan Fleming MD LAB BLOOD ORDERABLES Final Result [facility] [address] [place] [address], [place] [phone] from Last 3 Months or Most Recently Relevant to Health Maintenance Insurance MEDICAID - [place] Advance Directives Documents on File Type Date Recorded 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
--- OUTSIDE RECORDS SUMMARY | 2024-11-29 15:45 | XMS_ITS | Data Portability ---
Author Organization [facility] [id number] Address [address] [place] [address] Care Team Providers Care Pond Worker Name Role Phone [facility] Primary Care Provider Assessment No assessment recorded. Plan of Treatment Reminders Order Date Submit Date Provider Last Modified By Organization Details Last Modified Time Details Appointments None recorded. Lab None recorded. Referral emergency medicine referral 2022 023 [email or web address] Not available 3 12:11:52 Procedures None recorded. Surgeries None recorded. Imaging None recorded. Medication Orders None recorded. Patient TargetsNo targets recorded. Patient InstructionsNo instructions recorded. Reason for Referral Emergency Medicine Referral for Left lower quadrant pain Referring Physician: [facility], Encounter Date: 06/15/2022 Problems Name Problem SNOMED Code Status Onset Date Resolution Date Notes Provider Name and Address Organization Details Recorded Time Diabetes mellitus 40432473 Active GRACIELA RIDER-SARAYE RA null, PA - [facility] 3 11:26:31 Hypertensive disorder 35689553 Active GRACIELA RIDER-SARAYE RA null, PA - [facility] 3 11:26:41 Glaucoma 43369549 Active GRACIELA RIDER-RIVE RA null, PA - [facility] 3 11:26:59 Kidney stone 53990850 Active GRACIELA RIDER-RIVE RA null, PA - [facility] 3 11:27:13 Problem Notes None recorded. Procedures Surgical History Date Name Laterality Status Provider Name and Address Organization Details Recorded Time Partial hysterectomy completed GRACIELA BOSWELL PA - [facility] 06/15/2022 11:28:01 Glaucoma surgery completed GRACIELA BOSWELL PA - [facility] 06/15/2022 11:28:11 cataract surgery completed GRACIELA BOSWELL PA - [facility] 06/15/2022 11:28:19 laparoscopic sleeve gastrectomy completed GRACIELA BOSWELL PA - [facility] 06/15/2022 11:28:59 eye excision completed GRACIELA BOSWELL PA - [facility] 06/15/2022 11:29:19 Imaging Results None recorded. Procedure Notes None recorded. Medical Equipment None Reported. Medications Name Sig Start Date Stop Date Status Note LastModified by Organization Details LastModified Time latanoprost 0.005 % eye drops INSTILL 1 DROP IN THE RIGHT EYE ONCE DAILY AT BEDTIME active Not Available Not Available N ot Available tizanidine 2 mg tablet TAKE 1 TABLET BY MOUTH 3 (THREE) TIMES A DAY NEEDED FOR PAIN active Not Available Not Available No t Available omeprazole 40 mg capsule,jimenez yed release TAKE 1 CAPSULE BY MOUTH two (2) times a day active Not Available Not Available No t Available methenamine hippurate 1 gram tablet TAKE 1 TABLET BY MOUTH two (2) times a day active Not Available Not Available No t Available amitriptylin e 25 mg tablet TAKE 1 TABLET BY MOUTH AT BEDTIME active Not Available Not Available No t Available trazodone 100 mg tablet TAKE 2 TABLETS BY MOUTH AT BEDTIME active Not Available Not Available No t Available amlodipine 10 mg tablet TAKE 1 TABLET BY MOUTH ONCE DAILY active Not Available Not Available No t Available brimonidine 0.2 % eye drops INSTILL 1 DROP IN THE RIGHT EYE 3 (THREE) TIMES A DAY active Not Available Not Available Not Available docusate sodium 100 mg capsule TAKE 1 CAPSULE BY MOUTH two (2) times a day NEEDED FOR CONSTIPATIO N active Not Available Not Available No t Available dorzolamide 22.3 mg-timolol 6.8 mg/mL eye drops INSTILL 1 DROP IN THE RIGHT EYE 3 (THREE) TIMES A DAY active Not Available Not Available Not Available pilocarpine 2 % eye drops INSTILL 1 DROP IN THE RIGHT EYE 3 (THREE) TIMES A DAY active Not Available Not Available Not Available lisinopril 40 mg tablet TAKE 1 TABLET BY MOUTH ONCE DAILY active Not Available Not Available No t Available metformin ER 500 mg tablet,exten ded release 24 hr TAKE 2 TABLETS BY MOUTH IN THE EVENING WITH A MEAL active Not Available Not Available Not Available glipizide 5 mg tablet TAKE 1 TABLET BY MOUTH ONCE DAILY active Not Available Not Available No t Available dorzolamide 2 % eye drops INSTILL 1 DROP IN THE RIGHT EYE 3 (THREE) TIMES A DAY active Not Available Not Available Not Available rosuvastatin 10 mg tablet TAKE 1 TABLET BY MOUTH ONCE DAILY active Not Available Not Available No t Available duloxetine 60 mg capsule,jimenez yed release TAKE 2 CAPSULES BY MOUTH ONCE DAILY do not crush or chew active Not Available Not Available No t Available Pain Relief Extra Strength (acetaminoph en) 500 mg tablet TAKE 2 TABLETS BY MOUTH 3 (THREE) TIMES A DAY NEEDED FOR PAIN moderato active Not Available Not Available No t Available Calcium 600 + D(3) 600 mg-5 mcg (200 unit) tablet TAKE ONE TABLET BY MOUTH 2 (two) times a day active Not Available Not Available No t Available pregabalin 100 mg capsule TAKE 1 CAPSULE BY MOUTH two (2) times a day active Not Available Not Available No t Available pregabalin 150 mg capsule TAKE 1 CAPSULE BY MOUTH two (2) times a day active Not Available Not Available No t Available potassium citrate ER 15 mEq (1,620 mg) tablet,exten ded release TAKE 1 TABLET BY MOUTH two (2) times a day active Not Available Not Available No t Available Farxiga 10 mg tablet TAKE 1 TABLET BY MOUTH ONCE DAILY active Not Available Not Available No t Available Trulicity 1.5 mg/0.5 mL subcutaneous pen injector INJECT THE CONTENT OF 1 pen SUBCUTANEOU SLY EACH WEEK. rotate injection sites active Not Available Not Available No t Available Readi-Cat 2 2 % (w/v) oral suspension DRINK THE FIRST BOTTLE [address] SCAN AND THEN DRINK THE SECOND BOTTLE [address] SCAN DIRECTED active Not Available Not Available No t Available Vitals Date Recorded Body height Body mass index (BMI) Body weight Pain severity - 0-10 verbal numeric rating [Score] - Reported Heart rate Respiratory rate Body temperature Oxygen saturation Oxygen saturation in Arterial blood by Pulse oximetry Provider Name and Address Organization Details Last Updated DateTime 3 175.26 cm 31.7 kg/m2 24547.3 6 g 10 89 /min 18 /min 97.2 [degF] 96 % 96 % GRACIELA ACOSTA RA PA - [facility] 3 11:25:12 Date Recorded Systolic And Diastolic Provider Name and Address Organization Details Last Updated DateTime 06/15/2022 158/88 mm[Hg] ISAIAS Ann [facility] 06/15/2022 11:33:32 Social History Question Answer Notes LastModified by Organizat ion Details LastModified Time Tobacco Smoking Status Never Smoker GRACIELA stern PA Marissa [facility] 06/15/2022 11:27:49 Have You Had Direct Contact, Or Contact During Intimacy, With Monkeypox Rash, Scabs, Or Body Fluids From A Person With Monkeypox? No Information not available 06/15/2022 Have You Recently Traveled Abroad? No Information not available 06/15/2022 Sex: Unknown Functional Status Question Answer Note LastModified by Organizat ion Details LastModified Time Do you use any illicit or recreational drugs? No Information not available 06/15/2022 Do you or have you ever used any other forms of tobacco or nicotine? No Information not available 06/15/2022 What is your level of alcohol consumption? None Information not available 06/15/2022 Mental Status None recorded. Family History Relationship Description Onset Age of this Age Resolved Age Notes LastModified by Organization Details LastModified Time Father Diabetes mellitus Not available 03/2023 11:27:29 Mother Alzheimer's disease Not available 03/2023 11:27:39 Medical History No medical history recorded. Gynecological HistoryNo gynecological history recorded. Obstetrics History GPAL:G 0 P 0 0 0 0 Immunizations Vaccine Type Date Status Note Provider Nam e and Address Organization Details Recorded Time COVID-19, mRNA, LNP-S, PF, 30 mcg/0.3 mL dose 1 completed KATHRYN stern PA - [facility] 06/15/2022 11:48:03 COVID-19, mRNA, LNP-S, PF, 30 mcg/0.3 mL dose 1 completed KATHRYN stern PA - [facility] 06/15/2022 11:48:03 COVID-19, mRNA, LNP-S, PF, 30 mcg/0.3 mL dose 1 completed KATHRYN MACHNACZ null, PA - [facility] 06/15/2022 11:48:03 COVID-19, mRNA, LNP-S, bivalent, PF, 30 mcg/0.3 mL dose 2 completed KATHRYN MACHNACZ null, PA - [facility] 06/15/2022 11:48:04 Influenza, split virus, trivalent, preservative 2 completed KATHRYN MACHNACZ null, PA - [facility] 06/15/2022 11:48:04 Influenza, split virus, trivalent, preservative 1 completed KATHRYN MACHNACZ null, PA - [facility] 06/15/2022 11:48:04 Past Encounters Encounter ID Performer Location Encounter Start Date Encounter Closed Date Diagnosis/Indication Diagnosis SNOMED-CT Code Diagnosis ICD10 Code Diagnosis Note [id number] [facility] [place] [address] 06/28/2020 15:40:03 06/28/2020 16:19:39 [id number] [address] [facility] [place] [address] 10/09/2020 11:39:18 10/09/2020 12:21:46 [id number] [address] [facility] [place] [address] 09/18/2020 18:39:06 09/18/2020 20:12:47 [id number] XIAO BROWN MD [address] [facility] [place] [address] 06/15/2022 11:15:15 06/15/2022 12:11:52 Left lower quadrant pain 819692667 R10.32 Health Concerns Section Related Observation LastModified by Organization Gloria hayes LastModified Time None Recorded Concern Status LastModified by Organization Details LastModified Time None Recorded Advance Directives Directive None Recorded Payers Insurance Date Sequence Insurance Name Policy Number Policy Fry Covered Member ID Fry Member ID Guarantor Name 07/03/2022 1 [facility] (MEDICAID REPLACEMENT - O) [id number] Alicia Mela [id number] Alicia Mela OBGyn Episode No OBEpisode recorded.
--- OUTSIDE RECORDS SUMMARY | 2024-11-29 15:45 | XMS_ITS | Clinical Summary ---
Author Organization [facility] Address [address] [facility] [facility] [address] [place] [phone] Phone Care Team Providers Care Mgmt Analyst Name Role Phone Ivan Mayfield MD Primary Care Provider Allergies Active Allergy Reactions Criticality Noted Date Comments Nifedipine Headaches 02/28/2022 Medications ALBUTEROL INHL Inhale into the lungs as needed. 05/29/19 22 Active calcium carbonate/vitami n D3 (CALCIUM 600 + D,3, ORAL) Take by mouth. 12/02/19 21 Active PAIN RELIEF EXTRA STRENGTH 500 mg tablet TAKE 2 TABLETS BY MOUTH 3 (THREE) TIMES A DAY NEEDED FOR PAIN moderato 12/09/19 22 Active amitriptyline (ELAVIL) 25 MG tablet Take 25 mg by mouth nightly at bedtime. 02/07/20 22 Active amLODIPine (NORVASC) 10 MG tablet Take 10 mg by mouth daily. 02/07/20 22 Active diclofenac sodium (VOLTAREN) 1 % Gel See Instructions, 1 application Topically up to 4 times a day, # 100 Gm, 1 Refills, Maintenance, 03/01[facility]21 11[facility] upon patient request if the prescription is for a schedule II opioid drug., 168, cm, 02/12... 03/01/20 21 Active docusate sodium (COLACE) 100 MG capsule as needed. 01/31/20 22 Active DULoxetine (CYMBALTA) 60 MG capsule Take 2 capsules by mouth daily. 02/07/20 22 Active glipiZIDE (GLUCOTROL) 5 MG tablet Take 5 mg by mouth daily. 02/07/20 Active lisinopril (PRINIVIL,ZESTRI L) 40 MG tablet Take 40 mg by mouth daily. 01/31/20 Active metFORMIN (GLUCOPHAGE-XR) 500 MG 24 hr tablet Take 500 mg by mouth daily. 01/31/20 Active methenamine (HIPREX) 1 gram tablet 2 (two) times a day. 02/07/20 Active omeprazole (PRILOSEC) 40 MG capsule 2 (two) times a day. 02/07/20 Active potassium citrate (UROCIT-K) 15 mEq SR tablet 2 (two) times a day. 02/07/20 Active tiZANidine (ZANAFLEX) 2 MG tablet TAKE 1 TABLET BY MOUTH 3 (THREE) TIMES A DAY NEEDED FOR PAIN mild 02/07/20 Active traZODone (DESYREL) 100 MG tablet TAKE 2 TABLETS BY MOUTH DAILY AT BEDTIME 01/31/20 Active OZEMPIC 1 mg/dose (4 mg/3 mL) subcutaneous injection pen Inject 2 mg under the skin every 7 days. Active acetaminophen (TYLENOL) 500 MG tablet Take 500 mg by mouth every 6 (six) hours as needed for pain (specific location in comments). Active SENNA 8.6 mg tablet 12/29/19 Active cholecalciferol, vitamin D3, 25 mcg (1,000 unit) chewable tablet Take 25 mcg by mouth. 07/29/19 Active VENTOLIN HFA 90 mcg/actuation inhaler 12/29/19 Active pregabalin (LYRICA) 100 MG capsule TAKE 1 CAPSULE BY MOUTH two (2) times a day 09/25/19 Active pantoprazole (PROTONIX) 40 MG tablet Take 40 mg by mouth. Active FARXIGA 10 mg tablet Take 1 tablet by mouth daily. 07/29/19 Active atorvastatin (LIPITOR) 40 MG tablet Take by mouth. 09/19/19 Active tamsulosin (FLOMAX) 0.4 mg Cap Take by mouth. 09/19/19 Active metoprolol tartrate (LOPRESSOR) 50 MG tablet 12/29/19 Active brimonidine (ALPHAGAN) 0.2 % ophthalmic solution Place 1 drop into the right eye 3 (three) times a day. 30 mL 4 11/12/19 25 Active dorzolamide (TRUSOPT) 2 % ophthalmic solution Place 1 drop into the right eye 3 (three) times a day. 30 mL 4 11/12/19 25 Active latanoprost (XALATAN) 0.005 % ophthalmic solution Place 1 drop into the right eye nightly at bedtime. 10 mL 4 11/12/19 25 Active pilocarpine (ISOPTO CARPINE) 2 % ophthalmic solution Place 2 drops into the right eye 3 (three) times a day. 30 mL 4 11/12/19 25 Active brimonidine (ALPHAGAN) 0.2 % ophthalmic solution Place 1 drop into the right eye 3 (three) times a day. 30 mL 4 12/11/19 24 025 Discontin ued(Reord er) dorzolamide (TRUSOPT) 2 % ophthalmic solution Place 1 drop into the right eye 3 (three) times a day. 30 mL 4 12/11/19 24 025 Discontin ued(Reord er) latanoprost (XALATAN) 0.005 % ophthalmic solution Place 1 drop into the right eye nightly at bedtime. 10 mL 4 12/11/19 24 025 Discontin ued(Reord er) RHOPRESSA 0.02 % ophthalmic solution Place 1 drop into the right eye nightly at bedtime. 10 mL 4 12/11/19 24 025 Discontin ued(Thera py Completed /No Longer Necessary ) pilocarpine (ISOPTO CARPINE) 2 % ophthalmic solution Place 2 drops into the right eye 3 (three) times a day. 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 12/02/2022 Migraine 02/28/2022 Diabetes mellitus 02/28/2022 Hypertensive disorder 02/28/2022 Sleep apnea 02/28/2022 Asthma 02/28/2022 Encounters Date Type Department Care Team Description 11/11/2024 2:30 PM EDT Office Visit [facility] in [address] [id number] Katelin Pruitt MD, PhD Secondary angle-closure glaucoma of right eye, indeterminate stage (Primary Dx) from Last 3 Months Family History Medical History Relation Comments Glaucoma Maternal Aunt Glaucoma Maternal Grandmother Glaucoma Mother Macular degeneration Neg Hx Retinal detachment Neg Hx Relation Status Comments Maternal Aunt Maternal Grandmother Mother Social History Tobacco Use Types Packs/Day Years Used Date Smoking Tobacco: Former Cigarettes Smokeless Tobacco: Never Tobacco Cessation:Counseling Given: Not Answered Alcohol Use Standard Drinks/Week Comments Not Currently 0 (1 standard drink = 0.6 oz pur e alcohol) Education Answer Date Recorded Are you interested in more education? Not on cheo e 08/30/2022 Are you concerned about learning? Not on file 08/30/2022 No 08/30/2022 No 08/30/2022 Digital Access Answer Date Recorded No 09/25/2022 No 09/25/2022 Reliable internet access at home? Not on file 09/25/2022 Device with a working camera? Not on file Comments Unknown Sex and Gender Information Value Date Recorded Sex Assigned at Female 10/30/2021 5:06 PM EDT Legal Sex Female 4:42 PM EDT Gender Identity Female 10/30/2021 5:06 PM EDT Sexual Orientation Straight 10/30/2021 5: 06 PM EDT Plan of Treatment Upcoming Encounters Date Type Department Care Team (Late st Contact Info) Description 01/21/2025 2:15 PM EDT Office Visit [facility] in [address] [address] Maxime Srivastava MD, PhD [address] [place] [phone] [email or web address] 01/[email or web address]/2025 2:30 PM EDT Procedure visit [facility] in [address] [address] 05/12/2025 3:00 PM EST Office Visit [facility] in [address] [address] Katelin Pruitt MD, PhD [address] [place] [phone] [email or web address] Health Maintenance Due Date Last Done Comments BLOOD PRESSURE 1960 CREATININE LEVEL 1960 HEMOGLOBIN A1C 1960 POTASSIUM LEVEL 1960 DEPRESSION SCREENING 1972 SMOKING Hx and SMOKELESS TOBACCO SCREENING 01/24/1973 HEPATITIS C SCREENING 01/24/1978 HIV ONE-TIME SCREENING (18-65 YEARS) 01/24/1978 PAP SMEAR 01/24/1981 MAMMOGRAM 2000 COLOGUARD 01/24/2005 COLONOSCOPY 01/24/2005 COLORECTAL CANCER SCREENING 01/24/2005 FIT TEST 01/24/2005 FOBT 01/24/2005 SIGMOIDOSCOPY 01/24/2005 VIRTUAL COLONOSCOPY 01/24/2005 PNEUMOCOCCAL VACCINES (50+ years) (2 of 2 - PCV) 01/16/2010 01/16/2009 ZOSTER VACCINES (1 of 2) 01/24/2010 RSV VACCINE (1 - Risk 60-74 years 1-dose series) 2020 COVID-19 VACCINE (4 - season) 2024 03/30/2021, 08/28/2020, 08/07/2020 DIABETIC EYE EXAM 11/11/2025 11/11/2024, , 11/11/2024, Additional history exists Adult Td,Tdap Booster 01/08/2028 01/07/2018 HEPATITIS A VACCINES Aged Out No long er eligible based on patient's age to complete this topic HIB VACCINES Aged Out No longer eligi ble based on patient's age to complete this topic MENINGOCOCCAL VACCINES (ACWY) Aged Out No longer eligible based on patient's age to complete this topic MENINGOCOCCAL VACCINES (B) Aged Out N o longer eligible based on patient's age to complete this topic Medical Devices Not on file Procedures Procedure Name Priority Date/Time Associated Diagnosis Comments OCT, OPTIC NERVE - OD - RIGHT EYE Routine 11/11/2024 3:46 PM EDT Secondary angle-closure glaucoma of right eye, indeterminate stage from Last 3 Months Results * OCT, Optic Nerve - OD - Right Eye - [employer]; RNFL (11/11/2024 3:46 PM EDT) Anatomical Region Laterality Modality Head Optical Coherenc e Tomography Other Narrative 11/12/2024 12:35 PM EDT Quality: Borderline. Change: Unable to assess. Testing performed by: ko. Grinding Wheel Facer Comments: Pt. unable to fixate. Katelin Pruitt MD, PhD OPHTHALMOLOGY IMAGING Final Result from Last 3 Months Insurance [facility] Member Subscriber Plan / Payer (Ef fective 2019-Present) Name:Alicia Plaza Relation to Subscriber:Self Name:Alicia Plaza Payer ID:Not on file Type:Medicaid [address] [facility] [place] [facility] [place] [facility] [place] [facility] Care Teams Mgmt Analyst Relationship Specialty Start Date End Date Ivan Mayfield MD [address] [place] [address] [place] [address] PCP - General Internal Medicine 02/28/22 Additional Source Comments The information contained in this document represents components of the legal health record. It is not the complete legal health record.[facility]
[2024-11-29 17:07] LABS: Appearance Urine Clear; Glucose Urine UA >=1000 mg/dL (Negative); PH 5.5 (5.0-9.0); Specific Gravity - Urine 1.025 (1.005-1.025); UMIC TRIGGER UA YES
== END 2024-11-29 15:26 | disposition home or self-care (01) ==
LOC: HO.LAB 15:25
PROVIDERS: Visit Provider Nurse Practitioner Family
DX: R33.9 Retention of urine, unspecified (principal); Z87.440 Personal history of urinary (tract) infections
CPT/HCPCS: 81001; 87086